=== PATIENT | female | born 1980 | race Caucasian/White ===

== ENCOUNTER → 2023-07-28 13:23 | Outpatient (CLI) | payer OTHER, SELFPAY ==
--- NOTE | 2023-07-28 13:25 | DI.RAD.S_ITS ---
PROCEDURE: XR FOOT LT MIN 3V INDICATIONS: Left foot/ankle injury TECHNIQUE: 3 views of the foot were acquired. COMPARISON: None. FINDINGS: Bones: No fractures or dislocations. No suspicious bony lesions. There is a small calcaneal spur. Soft tissues: No tibiotalar joint effusion. Achilles tendon appears normal. IMPRESSION: No acute bony abnormality. If pain persists, followup imaging in 5-7 days is recommended to exclude occult fracture. Dictated by: Lali Adams M.D. on 07/28/2023 at 14:03 Approved by: Lali Adams M.D. on 07/28/2023 at 14:03
--- NOTE | 2023-07-28 13:25 | DI.RAD.S_ITS ---
PROCEDURE: XR HAND LT MIN 3V INDICATIONS: Left wrist/hand injury, FOOSH TECHNIQUE: 3 views of the hand(s) acquired. COMPARISON: None. FINDINGS: Bones: No fractures or dislocations. Carpal bones are normally aligned. No suspicious bony lesions. Soft tissues: No suspicious soft tissue calcifications. IMPRESSION: No acute bony abnormality. If pain persists, followup imaging in 5-7 days is recommended to exclude occult fracture. Dictated by: Lali Adams M.D. on 07/28/2023 at 14:03 Approved by: Lali Adams M.D. on 07/28/2023 at 14:07
--- NOTE | 2023-07-28 13:25 | DI.RAD.S_ITS ---
PROCEDURE: XR ANKLE LT MIN 3V INDICATIONS: Left ankle injury TECHNIQUE: 3 views of the ankle were acquired. COMPARISON: None. FINDINGS: Bones: No fractures or dislocations. Ankle mortise is normally aligned. No suspicious bony lesions. Soft tissues: There is marked lateral malleolar soft tissue swelling. No tibiotalar joint effusion. Achilles tendon appears normal. IMPRESSION: Marked lateral malleolar soft tissue swelling without discrete underlying bony abnormality. If pain persists, followup imaging in 5-7 days is recommended to exclude occult fracture. Dictated by: Lali Adams M.D. on 07/28/2023 at 14:02 Approved by: Lali Adams M.D. on 07/28/2023 at 14:02
--- NOTE | 2023-07-28 13:25 | DI.RAD.S_ITS ---
PROCEDURE: XR WRIST LT MIN 3V INDICATIONS: Left wrist/hand injury, FOOSH TECHNIQUE: 4 views of the wrist were acquired. COMPARISON: None. FINDINGS: Bones: No fractures or dislocations. No suspicious bony lesions. Soft tissues: No suspicious soft tissue calcifications. IMPRESSION: No acute bony abnormality. If pain persists, followup imaging in 5-7 days is recommended to exclude occult fracture. Dictated by: Lali Adams M.D. on 07/28/2023 at 14:07 Approved by: Lali Adams M.D. on 07/28/2023 at 14:08
== END ==
LOC: RAD 13:24
PROVIDERS: Referring Provider Physician Assistant Surgical; Visit Provider Physician Assistant Surgical
DX: S69.92XA Unspecified injury of left wrist, hand and finger(s), initial encounter (principal); S99.922A Unspecified injury of left foot, initial encounter; S99.912A Unspecified injury of left ankle, initial encounter; M79.89 Other specified soft tissue disorders; W19.XXXA Unspecified fall, initial encounter
CPT/HCPCS: 73110; 73130; 73610; 73630

== ENCOUNTER 2024-03-08 07:21 | Emergency (ER) | payer OTHER, SELFPAY ==
[2024-03-08 07:30] VITALS: PULSE 91; O2SAT 95
[2024-03-08 07:31] VITALS: BP 115/83; PULSE 91; RESP 18; TEMP 36.8; O2SAT 96; BMI 23.5
--- NOTE | 2024-03-08 07:35 | ED.CHESTPAIN ---
HPI - Chest Pain General Chief Complaint: Chest Pain Stated Complaint: chest pain Time Seen by Provider: 03/08/24 07:35 Source: patient, RN notes reviewed and old records reviewed Mode of arrival: Ambulatory Limitations: no limitations History of Present Illness HPI narrative: 43-year-old female history of gastroparesis presents with left-sided chest pain, she says not severe but was different than the sharp pains she has not had some past. She states it comes and goes. States she woke about 430 this morning but she typically wakes up multiple times throughout the night. States no radiation, localized just to that area. She can reproduce it little bit if she palpates. No rash or skin changes. Denies any fevers or chills. No cold cough congestion currently. States chronically will have some morning congestion. Denies any nausea or vomiting. No diaphoresis. No issues with bowel movements or urination. Denies any swelling in extremities. Patient states home medications are fluoxetine, omeprazole and Ambien. She has not on any estrogen. States she has had gastroparesis for many years which is what her omeprazole as 4. States only prior history is removal of uterine polyps. Denies any drug allergies. No tobacco, 1 or 2 alcoholic drinks daily, no recreational drugs. Notes dad has history of congestive heart failure atrial fibrillation diagnosed in his 60s was felt he likely had some kind of CA in his 50s but unknown. No other reported family history of cardiac, pulmonary, embolic or vascular. No long distance travel. Patient follows with [facility] for primary care provider. Related Data Home Medications Medication Instructions Recorded Confirmed fluoxetine 20 mg tablet 60 mg PO DAILY 07/28/23 07/28/23 omeprazole 40 mg capsule,delayed 40 mg PO DAILY 07/28/23 07/28/23 release zolpidem 10 mg tablet 10 - 20 mg PO ONCE PM PRN insomnia 07/28/23 07/28/23 Allergies Allergy/AdvReac Type Severity Reaction Status Date / Time No Known Drug Allergies Allergy Unverified 07/28/23 12:56 Review of Systems Review of Systems ROS Unobtainable: All systems reviewed & are unremarkable except as noted in HPI and below Patient History Social History Smoking Status: Never smoker Smoking Status: Never smoker Substance Use Type: does not use Exam Narrative Exam Narrative: GENERAL: Alert and oriented x three, well-appearing female in mild distress HEENT: Head normocephalic, atraumatic, EOMI, pupils reactive, face symmetric, moist mucous membranes NECK: Supple, full range of motion CARDIOVASCULAR: Regular rate and rhythm without murmurs, rubs or gallops. Reproducible chest discomfort left upper rib between ribs 3 and 4. No swelling, erythema or skin changes noted. No recent trauma. RESPIRATORY: Breath sounds equal bilaterally, no wheezes rales or rhonchi. No tachypnea or accessory muscle use. ABDOMEN: Soft, nontender. Normoactive bowel sounds all 4 quadrants. No guarding or rebound, rigidity, no mass : No CVA tenderness EXTREMITIES: Normal range of motion, no clubbing or edema. Neurovascularly intact NEUROLOGICAL: Cranial nerves II through XII grossly intact. Moving all extremities SKIN: Warm, dry, no petechiae, no rashes or lesions. Initial Vital Signs Initial Vital Signs: Vital Signs Pulse Rate 91 H 03/08/24 07:30 Pulse Oximetry 95 03/08/24 07:30 Scores Wells' Criteria for PE Clinical signs and symptoms of DVT: No PE is #1 Dx or equally likely: No Heart rate > 100: No Immobilization at least 3 days or surg in previous 4 weeks: No History of PE or DVT: No Hemoptysis: No Malignancy w/Treatment within 6 months or palliative: No Wells' PE Score total: 0 Course Orders Ordered: ED Orders 03/08/24 07:35 EKG-12 Lead Stat Vital Signs Vital signs: Vital Signs - 8 hr 03/08/24 07:31 Temperature 98.2 F Pulse Rate 91 H Respiratory Rate 18 Blood Pressure 115/83 Pulse Oximetry 96 Oxygen Delivery Method Room Air MDM - Chest Pain ECG Data Attestation: I personally reviewed and interpreted this ECG as follows: Prior ECG tracings: not available for review Interpretation: Normal sinus rhythm, rate of 80, IL 142, QRS 90, QTc 452. No acute ST evaluation. T wave inverted 3. No priors for comparison. [facility] Narrative Medical decision making narrative: 43-year-old female presents with left-sided chest discomfort is reproducible on exam, patient has a history of gastroparesis on fluoxetine omeprazole and Ambien. Family history includes father who had CHF and AFib in his 60s had a suspected cardiac event in his 50s. Patient does not have any other risk factors. Patient was reluctant to have additional workup including chest x-ray and lab work. Had discussion about risks versus benefits noted patient has risk factors but cannot completely rule out cardiac or source. Patient elects to defer further workup secondary to financial concerns. Discussed return precautions. EKG shows sinus rhythm no acute EKG changes patient's does not have priors for comparison. Discharge Plan Departure Patient Disposition: Home Clinical Impression: Chest pain Instructions: DI for Chest Pain Activity Restrictions/Additional Instructions: Follow up with your physician for recheck. You can return at any time for recurrent symptoms, new chest pain or shortness of breath, lightheadedness or passing out, diaphoresis or sweatiness, new swelling of your extremities, persistent vomiting or other new or concerning changes. Prescriptions: No Action zolpidem 10 mg tablet 10 - 20 mg PO ONCE PM PRN (Reason: insomnia) omeprazole 40 mg capsule,delayed release(DR/EC) 40 mg PO DAILY fluoxetine 20 mg tablet 60 mg PO DAILY Referrals: Miscellaneous,Doctor, MD [Primary Care Provider] - Stand Alone Forms: Patient Portal/API
[2024-03-08 07:38] VITALS: O2SAT 96
--- NOTE | 2024-03-08 07:41 | EKG_ITS ---
[address] [address] Test Date: 2024-03-08 Pat Name: Asia Marshall Department: [facility] Room: Gender: Female Airline Pilot/First Officer: SUDHA : 1980 Requested By: Order Number: [id number] Reading MD: Tom Marroquin Measurements Intervals [place] Rate: 80 P: 77 LA: 142 QRS: 51 QRSD: 90 T: 19 QT: 392 QTc: 452 Interpretive Statements Normal sinus rhythm Electronically Signed On 03-09-2024 14:43:57 PDT by Tom Marroquin
[2024-03-08 08:17] VITALS: BP 105/64
== END 2024-03-08 08:24 | disposition home or self-care (01) ==
PROVIDERS: Emergency Provider Emergency Medicine
DX: R07.9 Chest pain, unspecified (principal)
CPT/HCPCS: 93005; 99281; 99283